=== PATIENT | male | born 1960 | race Caucasian/White ===

== ENCOUNTER → 2021-11-26 | Outpatient (CLI) | payer OTHER ==
--- NOTE | 2021-11-26 16:58 | KCIC ---
EXAM: MRI LEFT SHOULDER WITHOUT CONTRAST INDICATION: Left shoulder radiograph 03/10/2021 COMPARISON: Adhesive capsulitis, labral tear TECHNIQUE: Multiplanar, multisequence imaging of the left shoulder without contrast. FINDINGS: ROTATOR CUFF: The supraspinatus, infraspinatus, subscapularis, and teres minor tendons are intact. No rotator cuff muscle atrophy or edema. LABRUM: The posterior labrum is blunted, likely degenerative tearing. BICEPS TENDON: The biceps tendon is intact and located. ACROMIOCLAVICULAR JOINT: Mild acromioclavicular degenerative joint disease. Type II acromion.. GLENOHUMERAL JOINT: Articular cartilage is intact. No acute fracture or marrow signal abnormality. Th ere is mild chronic irregularity of the posterior glenoid. OTHER: No joint effusion. No subacromial subdeltoid bursitis. There may be mild thickening of the cor acohumeral ligament. The rotator interval fat is not obscured and the inferior joint capsule is timoteo l in thickness. IMPRESSION: 1. No rotator cuff tear. 2. Blunted appearance of the posterior labrum, likely degenerative tearing. 3. Mild acromioclavicular degenerative joint disease. Electronically signed by: Nila Concepcion MD (11/26/2021 4:56 PM) [id number]
--- NOTE | 2021-11-29 10:24 | KCIC ---
MR cervical spine without contrast dated 11/29/2021 10:13 AM: No comparison available. Indication: Chronic neck pain. Technique: Routine multiplanar multisequence MR imaging of the cervical spine was performed without t he administration of intravenous contrast material. Findings: Rounded area of T1 and T2 hyperintensity within the C7 vertebral body, most consistent with atypical hemangioma. Marrow signal is otherwise homogeneous. Sagittal alignment is anatomic. Vertebral body he ights are maintained. At C2-C3, no significant posterior bulge. Central canal and foramen are adequate. At C3-C4, minimal broad-based bulge with slight retrolisthesis and mild hypertrophic change of the fa cet joints. Central canal and foramen are adequate. At C4-C5, mild broad-based posterior disc bulge with mild to moderate facet hypertrophic changes. Bul ging disc indents the ventral thecal sac without cord abutment. There is mild central stenosis. Moder ate right foraminal stenosis with mild foraminal narrowing on the left. At C5-C6,mild broad-based bulge and uncovertebral hypertrophy with mild hypertrophic change of the fa cet joints. Central canal is adequate. There is mild bilateral foraminal narrowing. At C6-C7, mild broad-based posterior disc bulge with facet hypertrophic change. There is a superimpos ed small focal protrusion at the left uncovertebral joint that results in moderate to severe proximal left foraminal stenosis with possible abutment/displacement of the exiting left C7 nerve root. Centr al canal is adequate. No significant right-sided foraminal narrowing. At C7-T1, normal Impression:: 1. Focal disc protrusion at the left C6-C7 uncovertebral joint appears to result in left-sided nerve root abutment and possible compression. Correlate with physical exam findings. 2. Mild central stenosis at L4-L5 with moderate right foraminal stenosis. 3. Milder spondylotic changes the remaining levels. Please see above report for full details. Electronically signed by: Aram Medley MD (11/29/2021 10:21 AM) JACOBO
== END ==
LOC: KCIC MRI 14:39
PROVIDERS: ATTEND Physician Assistant
DX: S43.432D Superior glenoid labrum lesion of left shoulder, subsequent encounter (principal); M47.812 Spondylosis without myelopathy or radiculopathy, cervical region; M48.02 Spinal stenosis, cervical region; M50.323 Other cervical disc degeneration at C6-C7 level; M19.012 Primary osteoarthritis, left shoulder; M75.02 Adhesive capsulitis of left shoulder; X58.XXXD Exposure to other specified factors, subsequent encounter
CPT/HCPCS: 72141; 73221

== ENCOUNTER → 2021-12-31 | Outpatient (CLI) | payer OTHER ==
[~2021-12-31] MED LIST: GABA300C18 PO; IBUP-1027 PO; LISI5TAB15 PO; PRAV20TA2 PO
--- NOTE | 2021-12-31 14:23 | PDOC1 ---
INITIAL PAIN CONSULT DATE OF SERVICE: DOS: DATE: 12/31/21 TIME: 14:16 CHIEF COMPLAINT: Chief Complaint: Neck and left upper extremity pain HISTORY OF PRESENT ILLNESS: 61-year-old male presents with history of pain in the base of the neck and left upper extremity for about 6 months after digging a trench on some of his property patient reports that he has had some pain similar to this in the past but always got better with rest and taking some oral analgesics but the pain would go away at this time did not go away as he tried oral steroids as well as [id number] medication without significant reduction pain has been radiating in the posterior aspect of the deltoid and the arm in the triceps and biceps region as well as into the forearm and into the hand with numbness and tingling in the thumb and first finger on the left side. Patient reports it is constant radiating shooting worse with repetitive motion worse with reaching over his head with his left arm is a constant radiating shooting pain worse with repetitive motions weightbearing weight lifting wakens him from sleep occasionally most nights he sleeps fairly well when he gets positioned with the stress off his neck and his left arm. Patient reports he has had some increased fatigue with left arm with reaching over his head reaching forward weightbearing repetitive motions as well as reaching to the side away from his body on the left. Patient has done physical therapy also chiropractic treatment and exercises and is currently doing both of these and has only had very temporary relief. Patient continues to do the stretching and strengthening exercises from his chiropractor and physical therapy at home several times daily. Patient is taking ibuprofen as well as Tylenol both of which decrease the pain slightly also tried gabapentin which was not significantly helpful in reducing the pain. Patient did have an MRI scan of the cervical spine showing focal disc protrusion at the left C6-7 with left-sided nerve root abutment and possible compression with mild broad-based disc bulge at C5-6 with mild bilateral neuroforaminal narrowing as well. PAST MEDICAL HISTORY: PMH: Hearing loss, hypertension, arthritis PREVIOUS SURGERIES: Past Surgical Hx: Cataract extraction, tonsillectomy CURRENT MEDICATIONS: Current Meds: Active Scripts Medications Dose Route/Sig Max Daily Dose Days Date Category Ibuprofen 400 Mg Tablet 400 Mg PO PRN Q6HRS PRN 12/31/21 Reported Pravastatin Sodium 20 Mg Tablet 1 Tab PO DAILY 12/31/21 Reported Gabapentin (Gabapentin) 300 Mg Capsule 300 Mg PO TID 12/31/21 Reported Lisinopril 5 Mg Tablet 1 Tab PO DAILY 12/31/21 Reported ALLERGIES; Allergies: Coded Allergies: Sulfa (Sulfonamide Antibiotics) (Verified Adverse Reaction, Intermediate, rash, 12/31/21) FAMILY HISTORY: Family Hx: No major medical problems or conditions that he is aware of. SOCIAL HISTORY: Social Hx: Patient does not drink alcohol does not smoke or use any illegal illicit or recreational drugs, is lives with his spouse locally in [place] [facility] REVIEW OF SYSTEMS: ROS: Positive for those items mentioned in history of present illness, all systems are reviewed, otherwise negative ,and are complete full and well-documented on patient's chart. PHYSICAL EXAM: VS: Blood pressure is 170/87 pulse 64 respiration 16 temperature is 98.6 F height is 6 foot weight is 158 pounds. PE: PHYSICAL EXAMINATION: GENERAL: The patient is awake, alert, oriented, appropriate, very pleasant in demeanor HEENT: Shows normocephalic, atraumatic. Extraocular movements are intact and symmetrical. Oral cavity: Mucous membranes moist and pink. Dentition is intact. NECK: Shows anterior throat supple without palpable lymphadenopathy noted. Swallow reflex symmetrical. CHEST: Shows normal on inspection. Breath sounds are clear bilaterally, no rales rhonchi or wheezes auscultated. HEART: Shows S1, S2 clear. No murmurs auscultated. ABDOMEN: Soft, nontender, nondistended. No palpable organomegaly is noted. BACK: Shows spine grossly in the midline. Normal-appearing cervical lordotic curvature. Cervical paraspinous muscles show symmetrical with inspection on palpation some moderate tenderness diffusely in the middle and lower aspect of the paraspinous musculature more on the left than the right but present bilaterally without trigger points without atrophy or hypertrophy and without asymmetry. Patient shows full rotation of motion of the cervical spine with moderate tenderness with far left lateral rotation past 45 degrees as well as extension but not full with forward flexion or right lateral rotation. There is slightly increased thoracic kyphosis, some minor flattening of the lumbar lordotic curvature. EXTREMITIES: Upper extremities show deep tendon reflexes 2+ in the biceps and triceps tendons. Motor exam is 5 on a scale of 5 with right columnist/commentator, biceps and tricep flexion and 4/5 on the left. Peripheral pulses are 2+ radial. No peripheral edema is noted bilaterally. Upper extremities are warm and dry to touch, equal in color and appearance. Shoulder shrug is strong and intact without loss of strength on resistance bilaterally as is abduction of the shoulder 90 degrees bilaterally. SKIN: Shows warm and dry, good turgor. No edema. No sores, rashes or bruising throughout. IMPRESSION: Impression: 61-year-old male with approximately 6-month history of pain in the neck and left upper extremity in a radicular fashion following a C6-7 dermatomal distribution. Cervical spine MRI scan as noted with C6-7 broad-based posterior disc bulge and left foraminal stenosis with abutment of displacing exiting left nerve root Hypertension Hearing loss Arthritis Plan: Options were discussed with the patient including serve medical managements continued physical therapy and chiropractic treatment as well as interventional techniques. Patient like to proceed with interventional techniques. We discussed a cervical epidural steroid injection using descriptions as well as anatomical models to describe the procedure. Patient will wait for preauthorization with insurance provider but once approved will return for translaminar approach C6-7 level cervical epidural steroid injection with fluoroscopic guidance. In the meantime patient will continue with chiropractic as well as stretching and strengthening exercises daily and oral analgesics as currently. MITCH PHOENIX MD December 31, 2021 14:23
== END | disposition home or self-care (01) ==
LOC: PNCL 11:04
PROVIDERS: ATTEND Anesthesiology
DX: M79.602 Pain in left arm (principal); M54.2 Cervicalgia; I10 Essential (primary) hypertension; M19.90 Unspecified osteoarthritis, unspecified site; Z79.899 Other long term (current) drug therapy; Z98.890 Other specified postprocedural states
CPT/HCPCS: 99214; G0463